=== PATIENT | female | born 1995 | race Caucasian/White ===

== ENCOUNTER 2017-01-23 15:20 | Emergency (ER) | payer OTHER ==
[~2017-01-23] VITALS: Ht 160 cm; Wt 67.7 kg
[2017-01-23 18:11] VITALS: BP 112/71
== END 2017-01-23 18:11 | disposition home or self-care (01) ==
LOC: ED 15:20
DX: L08.9 Local infection of the skin and subcutaneous tissue, unspecified (principal)